=== PATIENT | male | born 1960 | race Hispanic/Latino ===

== ENCOUNTER → 2022-06-20 | Outpatient (CLI) | payer OTHER ==
[~2022-06-20] MED LIST: TAMSULOSIN HCL0.4 MG PO
== END ==
LOC: RAD 14:13
PROVIDERS: ATTEND Family Medicine
DX: C61 Malignant neoplasm of prostate (principal); C79.51 Secondary malignant neoplasm of bone
CPT/HCPCS: 71046

== ENCOUNTER → 2022-08-18 | Outpatient (CLI) | payer OTHER | LOC: RAD 11:06 | PROVIDERS: ATTEND Family Medicine | DX: J40 Bronchitis, not specified as acute or chronic (principal) | CPT/HCPCS: 71046 ==

== ENCOUNTER 2022-08-25 12:28 | Emergency (ER) | payer OTHER ==
[~2022-08-25] VITALS: Ht 165.1 cm; Wt 74.8 kg
[2022-08-25] MEDS ORDERED: SODIUM CHLORIDE 0.9% 1000ML 1,000 ML IV STA (13:24)
[2022-08-25] MEDS ORDERED: KETOROLAC TROMETHAMINE 30 MG/ML VIAL IV ONE (13:30)
[2022-08-25] MEDS ORDERED: DEXAMETHASONE SOD PHOS INJ 4 MG/ML SDV ONE (13:44)
[2022-08-25] MEDS ORDERED: KETOROLAC TROMETHAMINE 30 MG/ML VIAL ONE (13:44)
[2022-08-25] MEDS ORDERED: SODIUM CHLORIDE 0.9% 1000ML 1,000 ML ONE (13:44)
[2022-08-25] MEDS ORDERED: DEXAMETHASONE SOD PHOS INJ 4 MG/ML SDV IV ONE (13:45)
[2022-08-25] MEDS ORDERED: IOPAMIDOL 370 MG/ML 100 ML INFUS..BTL INJ ONE (13:47)
[2022-08-25] MEDS ORDERED: MAGNESIUM CITR296 ML PO (15:42)
[2022-08-25] MEDS ORDERED: COLACE100 M1 PO (15:42)
== END 2022-08-25 15:55 | disposition home or self-care (01) ==
LOC: FSED 13:08
DX: R07.81 Pleurodynia (principal); R05.9 Cough, unspecified; G89.3 Neoplasm related pain (acute) (chronic); Z85.46 Personal history of malignant neoplasm of prostate; Z85.830 Personal history of malignant neoplasm of bone
CPT/HCPCS: 71260; 80053; 85025; 85379; 99283; J1100; J1885; J7030; Q9967